=== PATIENT | female | born 1985 | race Caucasian/White ===

== ENCOUNTER 2023-09-09 15:06 | Emergency (ER) | payer OTHER ==
[~2023-09-09] VITALS: Ht 157.5 cm; Wt 61.0 kg
[2023-09-09 15:08] VITALS: O2SAT 100
[2023-09-09 16:17] LABS: BASOPHILS % 1.1 % (0.0-2.0); EOSINOPHILS % 2.6 % (0.0-5.0); HEMATOCRIT. 40.1 % (36.0-48.0); HEMOGLOBIN. 12.6 g/dL (12.0-16.0); LYMPHOCYTES % 33.9 % (20.0-50.0); MEAN CORPUSCULAR HGB CONC 31.5 g/dL (31.0-37.0); MEAN CORPUSCULAR VOLUME 85.7 fL (81.0-99.0); MEAN PLATELET VOLUME 7.3 fl (7.4-10.4); MONOCYTES % 6.5 % (2.0-8.0); NEUTROPHILS % 55.9 % (40.0-76.0); PLATELET 337 x1000/uL (130-400); RED BLOOD CELL COUNT 4.67 mill/uL (4.2-5.4); RED CELL DISTRIBUTION WIDTH 14.8 % (11.6-14.6); WHITE BLOOD COUNT 7.5 x1000/uL (4.5-11.0)
[2023-09-09 16:25] LABS: CHLORIDE 109 mEq/L (98-107); POTASSIUM 3.4 mEq/L (3.5-5.1); SODIUM 143 mEq/L (136-145)
[2023-09-09 16:26] LABS: CARBON DIOXIDE 26 mEq/L (21-32)
[2023-09-09 16:27] LABS: CALCIUM 8.8 mg/dL (8.7-10.4)
[2023-09-09 16:32] LABS: CREATININE 0.6 mg/dL (0.6-1.0); GLUCOSE 93 mg/dL (70-105); UREA NITROGEN BLOOD 8 mg/dL (9-23)
[2023-09-09 19:19] VITALS: BP 109/68; PULSE 67; RESP 18; TEMP 98.2
== END 2023-09-09 19:20 | disposition home or self-care (01) ==
LOC: ER 15:06
DX: R55 Syncope and collapse (principal); Z86.59 Personal history of other mental and behavioral disorders
CPT/HCPCS: 36415; 80048; 81025; 85025; 93005; 99284

== ENCOUNTER 2023-12-08 14:04 | Emergency (ER) | payer OTHER ==
[~2023-12-08] VITALS: Ht 152.4 cm; Wt 61.0 kg
[2023-12-08 14:08] VITALS: O2SAT 98
[2023-12-08 14:15] VITALS: TEMP 36.50292
[2023-12-08 14:53] LABS: BASOPHILS % 0.9 % (0.0-2.0); EOSINOPHILS % 2.3 % (0.0-5.0); HEMATOCRIT. 39.2 % (36.0-48.0); HEMOGLOBIN. 12.7 g/dL (12.0-16.0); LYMPHOCYTES % 25.1 % (20.0-50.0); MEAN CORPUSCULAR HEMOGLOBIN 26.8 pg (28.0-32.0); MEAN CORPUSCULAR HGB CONC 32.4 g/dL (31.0-37.0); MEAN CORPUSCULAR VOLUME 82.9 fL (81.0-99.0); MEAN PLATELET VOLUME 7.4 fl (7.4-10.4); MONOCYTES % 4.8 % (2.0-8.0); NEUTROPHILS % 66.9 % (40.0-76.0); PLATELET 358 x1000/uL (130-400); RED BLOOD CELL COUNT 4.73 mill/uL (4.2-5.4); RED CELL DISTRIBUTION WIDTH 15.1 % (11.6-14.6); WHITE BLOOD COUNT 9.4 x1000/uL (4.5-11.0)
[2023-12-08 14:59] LABS: CHLORIDE 106 mEq/L (98-107); POTASSIUM 3.8 mEq/L (3.5-5.1); SODIUM 141 mEq/L (136-145)
[2023-12-08 15:00] LABS: CALCIUM 9.3 mg/dL (8.7-10.4); CARBON DIOXIDE 29 mEq/L (21-32)
[2023-12-08 15:03] LABS: HCG SCREEN NEGATIVE
[2023-12-08] MEDS: METOCLOPRAMIDE HCL 10MG/2ML VIAL IV ONE (15:04)
[2023-12-08 15:05] LABS: CREATININE 0.6 mg/dL (0.6-1.0); GLUCOSE 97 mg/dL (70-105); UREA NITROGEN BLOOD 6 mg/dL (9-23)
[2023-12-08] MEDS: ACETAMINOPHEN 325MG TABLET PO ONE (15:14)
[2023-12-08 15:27] LABS: ETHANOL BLOOD < 10 mg/dL (<10)
[2023-12-08 15:54] LABS: *AMPHETAMINES SCREEN URINE NEGATIVE (NEGATIVE); *BARBITURATES SCREEN URINE NEGATIVE (NEGATIVE); *BENZODIAZEPINES SCREEN URINE NEGATIVE (NEGATIVE); *COCAINE SCREEN URINE NEGATIVE (NEGATIVE); METHADONE URINE SCREEN NEGATIVE (NEGATIVE); OPIATES URINE SCREEN NEGATIVE (NEGATIVE); PHENCYCLIDINE URINE SCREEN NEGATIVE (NEGATIVE)
[2023-12-08 15:55] LABS: CANNABINOID URINE SCREEN NEGATIVE (NEGATIVE); ECSTASY MDMA SCREEN URINE NEGATIVE (NEGATIVE)
[2023-12-08 17:04] VITALS: BP 123/73; PULSE 77; RESP 15; O2SAT 98
== END 2023-12-08 17:41 | disposition left against medical advice (07) ==
LOC: ER 14:04
DX: R55 Syncope and collapse (principal); Z86.59 Personal history of other mental and behavioral disorders
CPT/HCPCS: 80305; 80048; 80320; 82962; 84703; 83735; 85025; 36415; 99283; Z7610 ×2; G0480